=== PATIENT | male | born 2000 | race Caucasian/White ===

== ENCOUNTER 2023-11-08 23:48 | Observation (INO) | payer OTHER ==
[~2023-11-08] VITALS: Ht 182.9 cm; Wt 54.4 kg
[~2023-11-08 23:48] MED LIST: ACET325UDC; ACET80L; AMOCLA400S PO; AZIT200SU PO; Amoxicillin500 MG PO; BENADRYL25 MG PO; CEPH250A PO; CODGUAEL PO; DIVA500EC PO; IBUP100S PO; Motrin100 MG/5 M PO; PRED10 PO; PRED20 PO; QUET100 PO; RXAZITHSU PO; [UNRECOGNIZED DRUG - REMARK]
[2023-11-09 00:09] LABS: BASOPHILS PERCENT AUTO 1 % (0-2); EOSINOPHILS ABSOLUTE AUTO 0.58 K/mm3 (0.00-0.68); EOSINOPHILS PERCENT AUTO 7 % (0-6); Hematocrit 44.3 % (37.0-53.0); Hemoglobin 14.9 g/dL (13.5-17.5); IMMATURE GRAN ABSOLUTE AUTO 0.01 K/mm3 (0.00-0.10); IMMATURE GRAN PERCENT AUTO 0 % (0-1); LYMPHOCYTES ABSOLUTE AUTO 3.61 K/mm3 (0.84-5.20); LYMPHOCYTES PERCENT AUTO 46 % (21-46); MONOCYTES ABSOLUTE AUTO 0.56 K/mm3 (0.16-1.47); MONOCYTES PERCENT AUTO 7 % (4-13); Mean Corpuscular HGB 29.9 pg (26.0-34.0); Mean Corpuscular HGB Conc 33.6 g/dL (31.5-36.5); Mean Corpuscular Volume 89 fL (80-100); Mean Platelet Volume 10.8 fL (9.1-12.4); NEUTROPHILS ABSOLUTE AUTO 3.01 K/mm3 (1.96-9.15); NEUTROPHILS PERCENT AUTO 38 % (41-73); Platelet Count 257 K/mm3 (150-400); RDW Coefficient Variation 12.5 % (11.7-14.2); RDW Standard Deviation 40.8 fL (35.1-46.3); Red Blood Cell Count 4.98 M/mm3 (4.30-5.90); White Blood Cell Count 7.87 K/mm3 (4.00-11.30)
[2023-11-09 00:36] LABS: Salicylate 3.2 mg/dL (2.8-20.0)
[2023-11-09 00:38] LABS: Alanine Aminotransfer (ALT/SGP 15 U/L (12-78); Albumin, Blood 3.9 g/dL (3.4-5.0); Albumin/Globulin Ratio 1.2 (0.8-1.8); Alk Phos 64 U/L (50-136); Anion Gap 3 mmol/L (6-16); Aspartate Aminotrans (AST/SGOT 16 U/L (12-37); Bilirubin, Total 0.3 mg/dL (0.1-1.0); Blood Urea Nitrogen 10 mg/dL (8-24); Bun/Creatinine Ratio 11.9 (12.0-20.0); CO2, Blood 31 mmol/L (21-32); Calcium, Blood 8.5 mg/dL (8.5-10.1); Chloride, Blood 112 mmol/L (98-108); Creatinine, Blood 0.84 mg/dL (0.60-1.20); Globulin, Blood 3.3 g/dL (2.2-4.0); Glomerular Filtration Rate 128 (60-); Glucose, Blood 96 mg/dL (70-99); Potassium, Blood 3.9 mmol/L (3.5-5.5); Sodium, Blood 146 mmol/L (136-145); Total Protein, Blood 7.2 g/dL (6.4-8.2)
[2023-11-09 00:41] LABS: Acetaminophen, Random <2.0 ug/mL (10.0-30.0)
[2023-11-09 01:48] LABS: Source, Urine Clean Catch
[2023-11-09 01:53] LABS: Bilirubin, Urine Neg (Neg); Blood, Urine Neg (Neg); Glucose Qualitative, Urine Neg (Neg); Ketones, Urine Neg (Neg); Leukocyte Esterase, Urine Neg (Neg); Nitrite, Urine Neg (Neg); Protein, Urine 2+ (Neg); Specific Gravity, Urine 1.015 (1.003-1.022); Urobilinogen, Urine NORM (Normal)
[2023-11-09 01:55] LABS: Appearance, Urine Clear (Clear); Color, Urine Yellow (P-Yellow)
[2023-11-09 01:57] LABS: U Amphetamine Screen DETECTED; U Barbituate Screen Not Detected; U Benzodiazapine Screen Not Detected; U Buprenorphine Screen Not Detected; U Cannabinoids Screen DETECTED; U Cocaine Screen Not Detected; U Methadone Screen Not Detected; U Methamphetamine Screen DETECTED; U Opiates Screen Not Detected; U Oxycodone Screen Not Detected; U Phencyclidine Screen Not Detected
[2023-11-09 02:00] LABS: Bacteria Not Seen /hpf; Red Blood Cells, Urine Not Seen /hpf (0-2); Squamous Epithelial Cells Not Seen /hpf (Few); White Blood Cells, Urine 0-2 /hpf (0-5)
[2023-11-10 09:45] VITALS: BP 135/84
[2023-11-10] MEDS ORDERED: QUETIAPINE FUM200 M2 PO (10:21)
[2023-11-10] MEDS ORDERED: 1/2 NS 250ml250 ML (11:12)
== END 2023-11-10 11:12 | disposition home or self-care (01) ==
LOC: ER 23:48 → EOR 23:49 → ER 11-09 00:04 → EOR 11-09 00:04
PROVIDERS: ADMIT Emergency Medicine
DX: F33.3 Major depressive disorder, recurrent, severe with psychotic symptoms (principal); R45.851 Suicidal ideations; F90.9 Attention-deficit hyperactivity disorder, unspecified type
CPT/HCPCS: 36415; 80053; 81001; 84443; 85025; 90714; 99285; A9270; G0378; G0480

== ENCOUNTER 2023-12-30 01:08 | Inpatient (IN) | payer OTHER ==
[2023-12-30] VITALS (22 sets, daily range): BP systolic 103–136; BP diastolic 55–93
[~2023-12-30] VITALS: Ht 182.9 cm; Wt 61.3 kg
[~2023-12-30 01:08] MED LIST changes: +1/2 NS 250ml250 ML; +QUETIAPINE FUM200 M2 PO
[2023-12-30] MEDS ORDERED: [UNRECOGNIZED DRUG - REMARK] XX STA (04:42)
[2023-12-30] MEDS ORDERED: Ondansetron HCl 2 MG / ML 2ML Vial IV PRN (05:15)
[2023-12-30] MEDS ORDERED: FLU VACC QS2023-24(6MOS UP)/PF 60 MCG/0.5 ML SYRINGE IM SCH (05:15)
[2023-12-30] MEDS ORDERED: Lactated Ringer's 1,000 ML IV SCH (06:00)
[2023-12-30] MEDS ORDERED: CefTRIAXone Sodium 1,000 MG in NS 50 ML IV ONE (06:35)
[2023-12-30 07:26] LABS: Albumin/Globulin Ratio 1.4 (0.8-1.8); Bun/Creatinine Ratio 16.7 (12.0-20.0); Calcium, Blood 9.5 mg/dL (8.5-10.1); Creatinine, Blood 0.84 mg/dL (0.60-1.20); Globulin, Blood 2.8 g/dL (2.2-4.0); Potassium, Blood 3.4 mmol/L (3.5-5.5); Total Protein, Blood 6.8 g/dL (6.4-8.2)
[2023-12-30 07:30] LABS: Acetaminophen, Random 73.6 ug/mL (10.0-30.0); BASOPHILS ABSOLUTE AUTO 0.07 K/mm3 (0.00-0.23); BASOPHILS PERCENT AUTO 1 % (0-2); EOSINOPHILS ABSOLUTE AUTO 0.17 K/mm3 (0.00-0.68); EOSINOPHILS PERCENT AUTO 2 % (0-6); Hematocrit 40.8 % (37.0-53.0); IMMATURE GRAN ABSOLUTE AUTO 0.05 K/mm3 (0.00-0.10); IMMATURE GRAN PERCENT AUTO 0 % (0-1); LYMPHOCYTES ABSOLUTE AUTO 1.09 K/mm3 (0.84-5.20); LYMPHOCYTES PERCENT AUTO 10 % (21-46); MONOCYTES PERCENT AUTO 5 % (4-13); Mean Corpuscular HGB Conc 34.3 g/dL (31.5-36.5); Mean Corpuscular Volume 88 fL (80-100); Mean Platelet Volume 10.4 fL (9.1-12.4); NEUTROPHILS ABSOLUTE AUTO 9.22 K/mm3 (1.96-9.15); NEUTROPHILS PERCENT AUTO 82 % (41-73); Platelet Count 256 K/mm3 (150-400); RDW Coefficient Variation 13.5 % (11.7-14.2); RDW Standard Deviation 43.6 fL (35.1-46.3); Red Blood Cell Count 4.66 M/mm3 (4.30-5.90)
[2023-12-30 07:39] LABS: International Normalized Ratio 1.23; Prothrombin Time Results 12.8 Sec (9.7-11.5)
[2023-12-30 08:07] LABS: Appearance, Urine Hazy (Clear); Bilirubin, Urine Neg (Neg); Blood, Urine Neg (Neg); Color, Urine Yellow (P-Yellow); Glucose Qualitative, Urine Neg (Neg); Ketones, Urine 1+ (Neg); Leukocyte Esterase, Urine Neg (Neg); Nitrite, Urine Neg (Neg); Protein, Urine 2+ (Neg); Urobilinogen, Urine NORM (Normal)
[2023-12-30 08:08] LABS: Amorphous Mod (0-Heavy); Bacteria Rare /hpf; Mucus Light (0-Heavy); Red Blood Cells, Urine Not Seen /hpf (0-2); Spermatozoa Few /hpf; Squamous Epithelial Cells Few /hpf (Few)
[2023-12-30 08:11] LABS: U Cannabinoids Screen DETECTED
[2023-12-30 08:12] LABS: U Amphetamine Screen DETECTED; U Barbituate Screen Not Detected; U Benzodiazapine Screen Not Detected; U Buprenorphine Screen Not Detected; U Cocaine Screen Not Detected; U Methadone Screen Not Detected; U Methamphetamine Screen DETECTED; U Opiates Screen Not Detected; U Oxycodone Screen Not Detected; U Phencyclidine Screen Not Detected
--- NOTE | 2023-12-30 09:00 | NUR ---
Assumed care of pt on arrival to ICU 2 from emergency departement. Arrived wearing paper scrubs. This RN placed nonskid socks on pt prior to transfer from bed to [facility] and this upset him, he described feeling infantilized. On instructing patient to transfer to bed, he persisted with agitated and irritable behavior. This resolved as stimulus decreased. Pt was not combative but provided agitated comments with any care provided. Refused care of wound to left arm. It is wrapped in kerlex. SB per monitor with stable BP. SpO2 90% or greater with room air.
--- NOTE | 2023-12-30 10:45 | NUR ---
Dr Hamm in to see patient. Provider states that patient is not willing to talk right now and he will come by to evaluate patient later.
--- NOTE | 2023-12-30 11:37 | NUR ---
Patient is having episodes of bradycardia. He has been sinus john with rate averaging in 50s while sleeping but rate is gradually trending downwards with rate now averaging low 40s, occasionally dropping as low as 37. Call placed to Dr Mathis to notify and discuss pt's K+ value of 3.4 this AM. Provider states she will order follow up labs to check magnesium levels and to also check potassium before repletion.
--- NOTE | 2023-12-30 12:00 | NUR ---
Dr Mathis in to see patient. Plan of care discussed. No new orders at this time.
[2023-12-30 12:16] LABS: Magnesium, Blood 2.2 mg/dL (1.6-2.4); Potassium, Blood 3.5 mmol/L (3.5-5.5)
--- NOTE | 2023-12-30 18:20 | NUR ---
SUMMARY Neuro: A&O x 4. Lethargic for majority of shift, but wakeful enough to safely eat lunch and dinner. Able to get stand independently and void into urinal. Repositions independently in bed. Resp: Lungs clear t/o. SpO2 90% or greater RA. Cardiac: SB with rate in 40s at rest. Rate 60-70 with activity. BP stable. GI: Good PO intake at meal times. No BM this shift. : Good urine output. Skin: Pt has bruising to bilateral eyes, with edema. Pt declined photographing of these mahoney. He reports they are self-inflicted. Left forearm was undressed, cleansed with wound cleaner signs, photographed, and rewrapped. Pt tolerated this well. Pt refused additional skin assessment. This RN discussed wound present on pt's last ER visit and asked to assess it, but he refused this as well. Psychosocial: Pt is in better spirits this evening. He is interacting with staff in a calm and polite manner. He is calm and respectful when he refuses assessment/care. He reports that he is houseless, but alternates between staying at his mother, sister, and boyfriend's house. He denies physical and verbal violence from his family and romantic partner. He denies sexual exploitation/abuse.
--- NOTE | 2023-12-30 19:15 | NUR ---
ASSUMPTION OF CARE RECEIVED INTO CARE, REPORT GIVEN AT NURSING STATION DUE TO SENSITIVE ADMISSION/DIAGNOSIS. PT LYING IN BED WITH EYES CLOSED, ATTACHED TO MONITOR IN SB, SPO2>96% ON RA. SUICIDE PREVENTION/POLICIES IN PLACE. DOES NOT HAVE CALL JOE. SITTER AT BEDSIDE. NO VOICED CONCERNS AT THIS TIME. SEE SHIFT ASSESSMENT FOR FURTHER DETAILS.
[2023-12-31] VITALS (15 sets, daily range): BP systolic 111–138; BP diastolic 64–111
[2023-12-31 02:53] LABS: BASOPHILS ABSOLUTE AUTO 0.09 K/mm3 (0.00-0.23); BASOPHILS PERCENT AUTO 2 % (0-2); EOSINOPHILS ABSOLUTE AUTO 0.28 K/mm3 (0.00-0.68); EOSINOPHILS PERCENT AUTO 5 % (0-6); Hematocrit 38.2 % (37.0-53.0); Hemoglobin 13.1 g/dL (13.5-17.5); IMMATURE GRAN ABSOLUTE AUTO 0.01 K/mm3 (0.00-0.10); IMMATURE GRAN PERCENT AUTO 0 % (0-1); LYMPHOCYTES ABSOLUTE AUTO 2.73 K/mm3 (0.84-5.20); LYMPHOCYTES PERCENT AUTO 45 % (21-46); MONOCYTES ABSOLUTE AUTO 0.36 K/mm3 (0.16-1.47); MONOCYTES PERCENT AUTO 6 % (4-13); Mean Corpuscular HGB 29.8 pg (26.0-34.0); Mean Corpuscular HGB Conc 34.3 g/dL (31.5-36.5); Mean Corpuscular Volume 87 fL (80-100); Mean Platelet Volume 10.3 fL (9.1-12.4); NEUTROPHILS ABSOLUTE AUTO 2.57 K/mm3 (1.96-9.15); NEUTROPHILS PERCENT AUTO 43 % (41-73); Platelet Count 225 K/mm3 (150-400); RDW Coefficient Variation 13.2 % (11.7-14.2); RDW Standard Deviation 42.5 fL (35.1-46.3); Red Blood Cell Count 4.39 M/mm3 (4.30-5.90); White Blood Cell Count 6.04 K/mm3 (4.00-11.30)
[2023-12-31 03:14] LABS: Acetaminophen, Random 5.9 ug/mL (10.0-30.0); Albumin, Blood 3.2 g/dL (3.4-5.0); Albumin/Globulin Ratio 1.2 (0.8-1.8); Bilirubin, Total 0.5 mg/dL (0.1-1.0); Bun/Creatinine Ratio 12.4 (12.0-20.0); Calcium, Blood 8.5 mg/dL (8.5-10.1); Creatinine, Blood 0.73 mg/dL (0.60-1.20); Globulin, Blood 2.6 g/dL (2.2-4.0); Magnesium, Blood 1.8 mg/dL (1.6-2.4); Potassium, Blood 3.7 mmol/L (3.5-5.5); Total Protein, Blood 5.8 g/dL (6.4-8.2)
[2023-12-31 03:16] LABS: International Normalized Ratio 1.3; Prothrombin Time Results 13.4 Sec (9.7-11.5)
--- NOTE | 2023-12-31 05:48 | NUR ---
SHIFT SUMMARY SLEPT WELL THROUGHOUT NIGHT. ORIENTED X4. COOPERATIVE WITH CARE AND PLEASANT, GOOD MANNERS. FLAT AFFECT. DENIED ANY THOUGHTS OF SELF HARM. DENIES PAIN. IN SB/SR HR 33-70S, SBP 110-120S. RL AND NAC INFUSIONS NOW COMPLETE. SPO2>96% ON RA. USING URINALS TO VOID. SNACK GIVEN HS, ADEQUATE INTAKE. BAG OF BELONGINGS CONTAINING CLOTHES, SHOES, CELL PHONE, WALLET LABELLED WITH PT LABEL AND LOCKED IN CLOSET IN ROOM. LEFT ARM REMAINS BANDAGED. REFUSED SKIN ASSESSMENT BUT ALLOWED FOR OTHER SYSTEMS TO BE ASSESSED. SITTER AT BEDSIDE ALL NIGHT. NO VOICED CONCERNS AT THIS TIME, REMAINS LYING IN BED ASLEEP.
[2023-12-31] MEDS ORDERED: Enoxaparin 40 MG/0.4 ML SYR SC SCH (09:00)
--- NOTE | 2023-12-31 18:14 | NUR ---
SUMMARY Pt is medical floor status with telemetry awaiting placement with inpatient psych. Has been generally pleasant and cooperative with care but became agitated when discussing that he will be moved to inpatient psych. Pt became angry during interacting with Dr Hamm. Pt later called this RN in room to review plan of care and when reinforced that he would be transferring to inpatient psych, he formed a fist with his right hand, and shouted "I asked my mom to call the ambulance; I'm never going to do that again". Pt did not make an attempt to physically harm himself or staff. Pt deescalated without further intervention and was again pleasant and cooperative with care during dinner time. He had a supervised shower today, but continues to refuse skin assessment. No undocmented wounds were visualized during shower, but thorough skin assessment remains incomplete. SB per monitor. Per [facility], this is unlikely related to the reported meds that pt overdosed on (lexapro, seroquel, tylenol). HR does increase to 60 or greater with activity and pt tolerates activity well. On room air. Voids into urinal. Good appetite. No BM this shift.
--- NOTE | 2023-12-31 22:24 | NUR ---
TRANSFER NOTE: PT TRANSFERED TO MEDICAL FLOOR 351. REPORT CALLED TO RECIVING RN. PT A&OX4. CONTINUES TO DENY CURRENT SI. IS WITHDRAWN, BUT WILLING TO ANSWER SIMPLE YES AND NO QUESTIONS. HE DOES HAVE INTERMITTENT AGGITATION IF QUESTIONS ARE INVASIVE. PT UNDER CONSTANT OBSERVATION. PT SAFETY MAINTAINED.
--- NOTE | 2024-01-01 03:22 | NUR ---
PT TRANSFERRED FROM ICU, AMBULATES INDEPENDENTLY. PT REMAINS ON TWO MD HOLD. ROOM CLEARED FOR SAFETY/MITIGATION R/T SUICIDE IDEATION. PSYCHE CONSULT TODAY, RECOMMENDED IN BEHAVIORAL HEALTH PENDING MEDICAL CLEARANCE. IV IN RFA SALINE LOCKED. DRESSING TO LEFT ARM COVERING 2 GASHES FROM CUTTING HIMSELF. PIC IN CHART. OLD CUTTING SCARS VISIBLE TO BILATERAL ARMS. 1:1 SITTER. PT'S SISTER ZONIA CALLED FOR AN UPDATE, EDUCATED SISTER THAT NO INFORMATION COULD BE GIVEN AT THIS TIME WITHOUT PATIENTS CONSENT, PATIENT IS CURRENTLY SLEEPING, SISTER VERBALIZES UNDERSTANDING.
[2024-01-01 04:18] VITALS: BP 126/74
[2024-01-01 07:30] VITALS: BP 118/86
[2024-01-01] MEDS ORDERED: Enoxaparin 30 MG/0.3 ML SYR SC SCH (09:00)
--- NOTE | 2024-01-01 13:19 | NUR ---
PATIENT IS ALERT AND ORIENTED. PATIENT IS IRRITABLE AND BECOMES AGITATED WITH STAFF WHEN ASKED QUESTIONS REGARDING HIS CARE. HE HAS APOLOGIZED FOR SOME REMARKS. THE PATIENT'S BOYFRIEND HAS BEEN AT THE BEDSIDE ALL THROUGHOUT THIS SHIFT. THE PATIENT AND HIS BOYFRIEND HAVE TIMES OF RISING TENSIONS BETWEEN THEMSELVES, RN STEPPED IN AND ASKED THE PATIENT IF HIS VISITOR NEEDS TO LEAVE. IN RESPONSE, THE PATIENT YELLED AT RN STATING "NO HE DOESNT NEED TO LEAVE". RN TOD THE PATIENT AND HIS BOYFRIEND THAT IF THEY CONTINUE TO ARGUE, HE WILL BE ASKED TO LEAVE. THIS AFTERNOON AT 13:35, RN HEARD THE PATIENT AND HIS VISITOR RAISE THEIR VOICES. THEY WERE STANDING IN THE ROOM FACING EACHOTHER ARGUING. RN CALLED THE VISITOR BY NAME AND ASKED HIM TO PROMPTLY LEAVE. THE PATIENT BECAME UPSET AND YELLED AT THE RN, "HE'S ALREADY GOING TO LEAVE ME AND YOU WANT HIM TO LEAVE ME SOONER?", IMPLYING THAT THE COUPLE IS GOING TO BREAKUP. RN RESPONDED, "YES I WANT HIM TO LEAVE NOW" AND THE PATIENT CAME TO DOORWAY POINTED IN MY FACE AND WITH A RAISED VOICE STATED THAT "HE'S GOING TO BREAKUP WITH ME AND YOU DONT CARE!". RN ATTEMPTED TO CALL SECURITY [employer]IA [employer] AND THIS UPSET THE PATIENT EVEN MORE. THE TWO WERE ALLOWD TO SAY GOODBYE BEFORE THE VISITOR FINALLY LEFT. SECURITY SHOWED UP AFTER THE VISITOR HAD GONE. WILL CONTINUE TO MONITOR
--- NOTE | 2024-01-01 15:43 | NUR ---
AFTER THE PATIENT'S VISITOR LEFT HE SAT ON THE FLOOR AND CRIED. HE IS NOW IN BED FACING THE WINDOW WITH COVERS PULLED UP OVER HIS BODY.
[2024-01-01 17:17] VITALS: BP 129/67
--- NOTE | 2024-01-01 17:47 | NUR ---
PATIENT IS ALERT AND ORIENTED. PATIENT HAS REFUSED WOUND CARE. HE HAD A VISITOR AT THE BEDSIDE TODAY, WHO WAS ASKED TO LEAVE THIS AFTERNOON BECAUSE THE TWO WERE ARGUING AND RAISING THEIR VOICES AT ONE ANOTHER. CHARGE RNS NOTIFIED AND HAVE SAID THAT THE PATIENT'S VISITOR PRIVILEGES CAN BE REVOKED AT NURSING DISCRETION. SINCE THE VISITO LEFT, THE PATINT HAS BEEN QUIET AND LAYING IN BED FACING THE WINDOW. THE PATIENT IS UPSET WITH STAFF FOR HAVING HIS VISITOR LEAVE. POISON CONTROL SPOKE WITH THIS RN TODAY AND STATED THAT THEY WERE SIGNING OFF. UPDATE GIVEN TO THE PATIENT'S MOM OVER THE PHONE WITH THE PATIENT'S PERMISSION. 1:1 SITTER. WILL CONTINUE TO MONITOR
[2024-01-01 19:40] VITALS: BP 120/68
[2024-01-01] MEDS ORDERED: QUEtiapine Fumarate 200 MG Tab PO SCH (21:00)
--- NOTE | 2024-01-02 07:23 | NUR ---
SHIFT SUMMARY PT DENIED SUICIDAL THOUGHTS THIS SHIFT. DRESSING TO LEFT ARM CHANGED. PENDING INPT BEHAVIORAL HEALTH PLACEMEN PENDING MDICAL CLEARANCE. 1:1 SITTER AT BEDSIDE. PT WAS CALM AND COOPERATIVE AN SLEP MAJORIY OF SHIFT.
[2024-01-02 07:42] VITALS: BP 117/62
--- NOTE | 2024-01-02 16:55 | NUR ---
SHIFT SUMMARY Pt remains A&Ox3 this shift. 1:1 SI sitter at bedside. Pt cooperative with care. Denies further suicidal or harmful ideations. VSS. Resp even nonlabored on RA. Tolerating meals. Independent gettin OOB. Cuts to LUE cleansed and covered. No acute distress noted or c/o.
[2024-01-02 16:59] VITALS: BP 109/62
[2024-01-02 19:29] VITALS: BP 123/80
[2024-01-03] VITALS (7 sets, daily range): BP systolic 97–128; BP diastolic 52–75
--- NOTE | 2024-01-03 03:38 | NUR ---
Shift Summary Patient is a 23 year old male admitted due to intentional overdose. He denies trying to kill himself. He does not like to talk about it. He has a 1:1 sitter. He is alert, oriented, and cooperative. He is on a hold and waiting for in-patient Psych placement. He is independently ambulatory in his room. Has to ask for the palomino to the bathroom but does use a urinal. He has bandages to his left arm due to self inflicted cuts. Bandages are clean and dry. Bed is in low position. He does have a call light with a short cord. Room checked and safe. Patient rested throughout the night.
--- NOTE | 2024-01-03 16:35 | NUR ---
REPORT RECEIVED AND VERIFIED, VERY UNEVENTFUL IN THE ROOM PT SLEEPING OFF AND ON FLAT AFFECT BUT IS WILLING TO ALLOW ME TO DO HIS CARE. DRESSING TO LEFT ARM CHANGED, 2 LARGE OPEN AREAS NON DRAINGING AND HEALING. PT PARTNER CALL TO RECEIVED UP DATE CONCERNING PT, PT AWARE AND IS OK WITH US GIVING INFORMATION TO PARTNER JOE.
--- NOTE | 2024-01-04 04:27 | NUR ---
END OF SHIFT SUMMARY PT A&OX4. DENIES SUICIDAL IDEATION OR THOUGHTS OF HARMING SELF. DENIES NEEDS OTHER THAN ASKING FOR SNACKS/DRINKS MULTIPLE TIMES. LUE DRESSING REMAINS INTACT, PT DENIES PAIN. INDEPENDENT WITH ADLS HOWEVER REMAINS WITH 1:1 SITTER/SUPERVISION. PENDING PSYCH PLACEMENT.
[2024-01-04 07:37] VITALS: BP 118/62
[2024-01-04 15:14] VITALS: BP 118/62
[2024-01-04] MEDS ORDERED: Nicotine 21 MG PATCH TOP ONE (15:25)
[2024-01-04 15:45] VITALS: BP 135/80
--- NOTE | 2024-01-04 16:41 | NUR ---
PT STATES HE DOESNT HAVE THOUGHTS LIKE THAT AND WOULD LIKE TO GO HOME, AND FEELS IF WE HAVE TAKEN ALL HIS RIGHTS AWAY. PT TO BE TRANSFERED TO [facility] IN [place].
[2024-01-04 19:22] VITALS: BP 137/83
--- NOTE | 2024-01-04 23:12 | NUR ---
DISCHARGE TO ANOTHER FACILITY PT LEFT VIA TRANSPORT IN . ALL BELONGINGS SENT WITH PT.
== END 2024-01-04 23:18 | DRG 918 ==
LOC: ER 01:08 → ERHOLD 01:09 → ICUE 01:09 → MEDS 12-31 21:45
PROVIDERS: Internal Medicine; ADMIT Student in an Organized Health Care Education/Training Program
DX: T50.912A Poisoning by multiple unspecified drugs, medicaments and biological substances, intentional self-harm, initial encounter (principal); T39.1X2A Poisoning by 4-Aminophenol derivatives, intentional self-harm, initial encounter; S41.112A Laceration without foreign body of left upper arm, initial encounter; R00.1 Bradycardia, unspecified; F90.9 Attention-deficit hyperactivity disorder, unspecified type; F31.9 Bipolar disorder, unspecified; Z53.9 Procedure and treatment not carried out, unspecified reason; Z91.51 Personal history of suicidal behavior
CPT/HCPCS: 36415; 80053; 81001; 82947; 83735; 84132; 85025; 85610; 85730; 86850; 86900; 86901; 90471; 93005; 93010; 94760; 94762; 96365; 96366; 99285-25; A9270; G0480; J0132; J0696; J7060; J7070; J7120

== ENCOUNTER 2024-05-01 17:12 | Emergency (ER) | payer OTHER ==
[~2024-05-01] VITALS: Ht 182.9 cm; Wt 63.5 kg
[2024-05-01 17:26] VITALS: BP 140/88
[2024-05-01] MEDS ORDERED: OLANZapine ODT 5 MG Tab PO ONE (17:35)
[2024-05-01] MEDS ORDERED: OLAN5 PO (17:37)
== END 2024-05-01 17:46 | disposition home or self-care (01) ==
LOC: ER 17:12
DX: F41.0 Panic disorder [episodic paroxysmal anxiety] (principal); Z76.0 Encounter for issue of repeat prescription
CPT/HCPCS: 99282; A9270

== ENCOUNTER 2025-01-14 04:55 | Emergency (ER) | payer OTHER ==
[~2025-01-14] VITALS: Ht 185.4 cm; Wt 65.6 kg
[~2025-01-14 04:55] MED LIST changes: +OLAN5 PO
[2025-01-14 08:00] VITALS: BP 122/74
== END 2025-01-14 08:00 | disposition home or self-care (01) ==
LOC: ER 04:55
DX: S01.511A Laceration without foreign body of lip, initial encounter (principal); W50.0XXA Accidental hit or strike by another person, initial encounter; Z88.0 Allergy status to penicillin; Z79.899 Other long term (current) drug therapy
CPT/HCPCS: 12011; 99282-25

== ENCOUNTER 2025-02-13 22:53 | Emergency (ER) | payer OTHER ==
[~2025-02-13] VITALS: Ht 185.4 cm; Wt 63.5 kg
[2025-02-13] MEDS ORDERED: Ipratropium/Albuterol SulF 2.5-0.5MG/3 ML Amp INH ONE (23:05)
[2025-02-13] MEDS ORDERED: Albuterol 2.5 MG/3 ML VIAL INH ONE (23:15)
[2025-02-13] MEDS ORDERED: RX Prepack Albuterol 1 PREPACK/6.7 GM INH UD ONE (23:45)
[2025-02-13] MEDS ORDERED: PredniSONE 20 MG Tab PO ONE (23:45)
[2025-02-14] MEDS ORDERED: DELTASONE20 MG PO (01:40)
[2025-02-14 02:00] VITALS: BP 116/75
== END 2025-02-14 02:18 | disposition home or self-care (01) ==
LOC: ER 22:53
DX: J45.901 Unspecified asthma with (acute) exacerbation (principal); Z76.0 Encounter for issue of repeat prescription; F17.200 Nicotine dependence, unspecified, uncomplicated; Z79.899 Other long term (current) drug therapy; Z59.89 Other problems related to housing and economic circumstances; Z88.0 Allergy status to penicillin
CPT/HCPCS: 71045; 94640; 94664; 99285-25; A9270; J7512

== ENCOUNTER 2025-02-28 19:24 | Emergency (ER) | payer OTHER ==
[~2025-02-28] VITALS: Ht 188 cm; Wt 68.0 kg
[~2025-02-28 19:24] MED LIST changes: +DELTASONE20 MG PO
[2025-02-28 19:41] VITALS: BP 152/92
[2025-02-28] MEDS ORDERED: Triamcinolone Inj Susp 40 MG / ML 1ML Vial IM ONE (20:25)
[2025-02-28] MEDS ORDERED: DiphenhydrAMINE HCL 25 MG Cap PO ONE (20:30)
[2025-02-28] MEDS ORDERED: Betamethasone Sod Phos/Acetate 6 MG/ML 5ML VIAL IM ONE ×2 (20:30)
[2025-02-28] MEDS ORDERED: CORTISONE60 GM TOP (20:35)
== END 2025-02-28 20:51 | disposition home or self-care (01) ==
LOC: ER 19:24
DX: L25.5 Unspecified contact dermatitis due to plants, except food (principal); Z88.0 Allergy status to penicillin; Z79.52 Long term (current) use of systemic steroids; Z79.899 Other long term (current) drug therapy
CPT/HCPCS: 96372; 99283-25; A9270; J0702; J3301